=== PATIENT | male | born 1960 | race African-American/Black ===

== ENCOUNTER 2020-11-22 10:34 | Inpatient (IN) | payer OTHER ==
[2020-11-22 11:44] VITALS: BMI 21.8
[2020-11-22] MEDS ORDERED: ACETAMINOPHEN 325 MG TABLET (FP) PO PRN ×2 (15:10)
[2020-11-22] MEDS ORDERED: NICOTINE POLACRILEX 2 MG GUM BUC PRN (15:10)
[2020-11-22] MEDS ORDERED: MAG HYDROX/AL HYDROX/SIMETH 30 ML UNIT-DOSE CUP PO PRN (15:10)
[2020-11-22] MEDS ORDERED: MAGNESIUM HYDROX 2400MG/30ML ORAL SUSPENSION 30 ML CUP PO PRN (15:10)
[2020-11-22] MEDS ORDERED: IBUPROFEN 400 MG TABLET (FP) PO PRN (15:10)
[2020-11-22] MEDS ORDERED: BISMUTH SUBSALICYLATE 262 MG/15 ML BTL PO PRN (15:10)
[2020-11-22] MEDS ORDERED: MAGNESIUM CITRATE 300 ML BOTTLE PO PRN (15:10)
[2020-11-22] MEDS ORDERED: ONDANSETRON *ODT* 4 MG TABLET SL PRN (15:10)
[2020-11-22] MEDS ORDERED: MENTHOL/PHENOL 1 EACH UD MM PRN (15:10)
[2020-11-22] MEDS ORDERED: METHOCARBAMOL 500 MG TABLET PO PRN (15:10)
[2020-11-22] MEDS ORDERED: METHADONE HCL 10 MG TABLET (FOR DETOX USE ONLY) PO ONE (15:12)
[2020-11-22] MEDS: cloNIDine HCL 0.1 MG TABLET PO PRN (18:20)
[2020-11-22] MEDS: hydrOXYzine PAMOATE 25 MG CAPSULE (FP) PO SCH ×2 (18:20→22:47)
[2020-11-22] MEDS: NICOTINE 14 MG/24 HOURS TOPICAL PATCH TD SCH (18:22)
[2020-11-22] MEDS: MELATONIN 5 MG TABLETS PO SCH (22:47)
[2020-11-22] MEDS: THIAMINE HCL 100 MG TABLET (FP) PO SCH (22:47)
[2020-11-23] MEDS: hydrOXYzine PAMOATE 25 MG CAPSULE (FP) PO SCH ×2 (06:26→14:47)
[2020-11-23] MEDS ORDERED: METHADONE HCL 5 MG TABLET (FOR DETOX USE ONLY) ONE (09:11)
[2020-11-23] MEDS ORDERED: METHADONE HCL 10 MG TABLET (FOR DETOX USE ONLY) ONE (09:11)
[2020-11-23] MEDS ORDERED: METHADONE (DETOX) 20 MG, METHADONE (DETOX) 5 MG PO ONE (10:00)
[2020-11-23] MEDS ORDERED: hydrOXYzine PAMOATE 25 MG CAPSULE (FP) PO PRN (10:29)
[2020-11-23 11:58] LABS: HEMATOCRIT 43.1 % (35.4-49); HEMOGLOBIN 14.3 GM/dL (11.7-16.9); MCH 29.8 pg (25.7-33.7); MCHC 33.2 g/dl (32.0-35.9); MEAN CELL VOLUME 89.7 fl (80-96); MEAN PLT VOLUME 9.5 fl (7.5-11.1); PLATELET COUNT 186 K/MM3 (134-434); RDW 14.1 % (11.9-15.9); WHITE BLOOD COUNT 5.3 K/mm3 (4.0-10.0)
[2020-11-23] MEDS: PRENATAL VITAMINS W/ FOLIC ACID TABLET (FP) PO SCH (12:01)
[2020-11-23] MEDS: NICOTINE 14 MG/24 HOURS TOPICAL PATCH TD SCH (12:01)
[2020-11-23 12:19] LABS: POTASSIUM 4.4 mmol/L (3.5-5.1)
[2020-11-23 12:25] LABS: BLOOD UREA NITROGEN 15.1 mg/dL (7-18); CALCIUM 9.2 mg/dL (8.5-10.1)
[2020-11-23 12:26] LABS: ALBUMIN 3.3 g/dl (3.4-5.0)
[2020-11-23 12:29] LABS: CREATININE 0.9 mg/dL (0.55-1.3)
[2020-11-23 12:30] LABS: BILIRUBIN,TOTAL 0.4 mg/dL (0.2-1); TOT PROT 6.2 g/dl (6.4-8.2)
[2020-11-23] MEDS: BACITRACIN 0.9 GM PACKET TP SCH ×2 (14:22→22:39)
[2020-11-23] MEDS: FLUOCINONIDE 0.05% CREAM (15 GM TUBE) TP SCH ×3 (14:23→22:39)
[2020-11-23] MEDS: cloNIDine HCL 0.1 MG TABLET PO PRN (17:37)
[2020-11-23] MEDS: MELATONIN 5 MG TABLETS PO SCH (22:39)
[2020-11-23] MEDS: THIAMINE HCL 100 MG TABLET (FP) PO SCH (22:39)
[2020-11-23] MEDS: QUEtiapine FUMARATE 50 MG TABLET PO SCH (22:39)
[2020-11-24] MEDS ORDERED: METHADONE HCL 10 MG TABLET (FOR DETOX USE ONLY) PO ONE (10:00)
[2020-11-24] MEDS: FLUOCINONIDE 0.05% CREAM (15 GM TUBE) TP SCH ×4 (10:31→23:08)
[2020-11-24] MEDS: PRENATAL VITAMINS W/ FOLIC ACID TABLET (FP) PO SCH (10:32)
[2020-11-24] MEDS: BACITRACIN 0.9 GM PACKET TP SCH ×2 (10:32→23:08)
[2020-11-24] MEDS: NICOTINE 14 MG/24 HOURS TOPICAL PATCH TD SCH (10:33)
[2020-11-24] MEDS: cloNIDine HCL 0.1 MG TABLET PO PRN (18:17)
[2020-11-24 18:19] LABS: HIV INTERPRETATION NEGATIVE (NEGATIVE)
[2020-11-24] MEDS: MELATONIN 5 MG TABLETS PO SCH (23:08)
[2020-11-24] MEDS: QUEtiapine FUMARATE 50 MG TABLET PO SCH (23:08)
[2020-11-24] MEDS: THIAMINE HCL 100 MG TABLET (FP) PO SCH (23:09)
[2020-11-25] MEDS ORDERED: METHADONE HCL 5 MG TABLET (FOR DETOX USE ONLY) ONE (09:54)
[2020-11-25] MEDS ORDERED: METHADONE HCL 10 MG TABLET (FOR DETOX USE ONLY) ONE (09:54)
[2020-11-25] MEDS ORDERED: METHADONE (DETOX) 10 MG, METHADONE (DETOX) 5 MG PO ONE (10:00)
[2020-11-25] MEDS: PRENATAL VITAMINS W/ FOLIC ACID TABLET (FP) PO SCH (10:32)
[2020-11-25] MEDS: NICOTINE 14 MG/24 HOURS TOPICAL PATCH TD SCH (10:32)
[2020-11-25] MEDS: BACITRACIN 0.9 GM PACKET TP SCH ×2 (10:32→23:21)
[2020-11-25] MEDS: FLUOCINONIDE 0.05% CREAM (15 GM TUBE) TP SCH ×4 (10:33→23:21)
[2020-11-25] MEDS: MELATONIN 5 MG TABLETS PO SCH (23:21)
[2020-11-25] MEDS: THIAMINE HCL 100 MG TABLET (FP) PO SCH (23:21)
[2020-11-25] MEDS: QUEtiapine FUMARATE 50 MG TABLET PO SCH (23:22)
[2020-11-26 09:16] VITALS: BP 137/89; PULSE 82; TEMP 97.1
[2020-11-26] MEDS: PRENATAL VITAMINS W/ FOLIC ACID TABLET (FP) PO SCH (09:25)
[2020-11-26] MEDS: BACITRACIN 0.9 GM PACKET TP SCH (09:25)
[2020-11-26] MEDS: NICOTINE 14 MG/24 HOURS TOPICAL PATCH TD SCH (09:25)
[2020-11-26] MEDS: FLUOCINONIDE 0.05% CREAM (15 GM TUBE) TP SCH (09:25)
[2020-11-26] MEDS ORDERED: METHADONE HCL 10 MG TABLET (FOR DETOX USE ONLY) PO ONE (10:00)
[2020-11-27] MEDS ORDERED: METHADONE HCL 5 MG TABLET (FOR DETOX USE ONLY) PO ONE (06:00)
== END 2020-11-26 09:39 | disposition home or self-care (01) | DRG 773 ==
LOC: YASAS 10:34 → Y3N 15:01
PROVIDERS: ADMIT Allergy & Immunology; ATTEND Allergy & Immunology
PROC: HZ2ZZZZ Detoxification Services for Substance Abuse Treatment (ICD-10-PCS; principal; 2020-11-22)
DX: F11.23 Opioid dependence with withdrawal (principal); F10.10 Alcohol abuse, uncomplicated; F17.210 Nicotine dependence, cigarettes, uncomplicated; F19.24 Other psychoactive substance dependence with psychoactive substance-induced mood disorder; F31.9 Bipolar disorder, unspecified; G47.00 Insomnia, unspecified; I10 Essential (primary) hypertension; G89.29 Other chronic pain; M54.5 Low back pain; M51.26 Other intervertebral disc displacement, lumbar region; M12.9 Arthropathy, unspecified; L40.0 Psoriasis vulgaris; Z62.810 Personal history of physical and sexual abuse in childhood; R21 Rash and other nonspecific skin eruption; Z86.79 Personal history of other diseases of the circulatory system; Z98.890 Other specified postprocedural states
CPT/HCPCS: 36415; 80053; 85027; 86593; 86780; 87389; 93005; 93010; C9803; J0735; U0003

== ENCOUNTER 2021-11-24 10:06 | Inpatient (IN) | payer OTHER ==
[2021-11-24 10:39] VITALS: BMI 22.4
[2021-11-24] MEDS ORDERED: IBUPROFEN 400 MG TABLET (FP) PO PRN (11:27)
[2021-11-24] MEDS ORDERED: MAG HYDROX/AL HYDROX/SIMETH 30 ML UNIT-DOSE CUP PO PRN (11:27)
[2021-11-24] MEDS ORDERED: ACETAMINOPHEN 325 MG TABLET (FP) PO PRN ×2 (11:27)
[2021-11-24] MEDS ORDERED: MENTHOL/PHENOL 1 EACH UD MM PRN (11:27)
[2021-11-24] MEDS ORDERED: NICOTINE 10 MG CARTRIDGE (INHALER) IH PRN (11:27)
[2021-11-24] MEDS ORDERED: methaDONE HCL 10 MG TABLET (FOR DETOX USE ONLY) PO ONE (11:27)
[2021-11-24] MEDS ORDERED: MAGNESIUM HYDROX 2400MG/30ML ORAL SUSPENSION 30 ML CUP PO PRN (11:27)
[2021-11-24] MEDS ORDERED: LOPERAMIDE HCL 2 MG CAPSULE PO PRN (11:27)
[2021-11-24] MEDS ORDERED: ONDANSETRON *ODT* 4 MG TABLET SL PRN (11:27)
[2021-11-24] MEDS ORDERED: MAGNESIUM CITRATE 300 ML BOTTLE PO PRN (11:27)
[2021-11-24] MEDS ORDERED: BISMUTH SUBSALICYLATE 262 MG/15 ML BTL PO PRN (11:27)
[2021-11-24] MEDS: hydrOXYzine PAMOATE 25 MG CAPSULE (FP) PO SCH ×3 (15:46→22:42)
[2021-11-24] MEDS: LISINOPRIL 10 MG TABLET PO SCH (15:46)
[2021-11-24] MEDS: LIDOCAINE 5% TOPICAL PATCH TP SCH (15:52)
[2021-11-24] MEDS ORDERED: TRIMETHOBENZAMIDE HCL 200MG/2ML INJ IM ONE (20:19)
[2021-11-24] MEDS: LIDOCAINE PATCH REMOVAL MC SCH (22:39)
[2021-11-24] MEDS: MELATONIN 5 MG TABLETS PO SCH (22:42)
[2021-11-24] MEDS: THIAMINE HCL 100 MG TABLET (FP) PO SCH (22:42)
[2021-11-24] MEDS: cloNIDine HCL 0.1 MG TABLET PO PRN (22:42)
[2021-11-25] MEDS: hydrOXYzine PAMOATE 25 MG CAPSULE (FP) PO SCH ×5 (07:06→23:07)
[2021-11-25] MEDS ORDERED: methaDONE HCL 10 MG TABLET (FOR DETOX USE ONLY) ONE (09:55)
[2021-11-25] MEDS: LISINOPRIL 10 MG TABLET PO SCH (11:11)
[2021-11-25] MEDS: PRENATAL VITAMINS W/ FOLIC ACID TABLET (FP) PO SCH (11:11)
[2021-11-25] MEDS: LIDOCAINE 5% TOPICAL PATCH TP SCH (11:21)
[2021-11-25 14:28] LABS: CALCIUM 8.9 mg/dL (8.5-10.1)
[2021-11-25 14:29] LABS: ALBUMIN 3.9 g/dl (3.4-5.0); BLOOD UREA NITROGEN 18.8 mg/dL (7-18)
[2021-11-25 14:32] LABS: CREATININE 0.9 mg/dL (0.55-1.3)
[2021-11-25 14:33] LABS: BILIRUBIN,TOTAL 0.3 mg/dL (0.2-1); HEMATOCRIT 44.8 % (35.4-49); HEMOGLOBIN 14.7 GM/dL (11.7-16.9); MCH 29.7 pg (25.7-33.7); MCHC 32.7 g/dl (32.0-35.9); MEAN CELL VOLUME 90.7 fl (80-96); MEAN PLT VOLUME 9.5 fl (7.5-11.1); PLATELET COUNT 183 10^3/uL (134-434); RBC 4.94 M/mm3 (4.00-5.60); RDW 14.7 % (11.9-15.9); TOT PROT 7.4 g/dl (6.4-8.2); WHITE BLOOD COUNT 6.3 K/mm3 (4.0-10.0)
[2021-11-25] MEDS: cloNIDine HCL 0.1 MG TABLET PO PRN (18:07)
[2021-11-25] MEDS: LIDOCAINE PATCH REMOVAL MC SCH (23:06)
[2021-11-25] MEDS: MELATONIN 5 MG TABLETS PO SCH (23:07)
[2021-11-25] MEDS: THIAMINE HCL 100 MG TABLET (FP) PO SCH (23:07)
[2021-11-26] MEDS: hydrOXYzine PAMOATE 25 MG CAPSULE (FP) PO SCH ×5 (07:07→23:01)
[2021-11-26 08:07] LABS: SARS-CoV-2 NAA Not Detected (Not Detected)
[2021-11-26] MEDS ORDERED: methaDONE HCL 10 MG TABLET (FOR DETOX USE ONLY) PO ONE (10:00)
[2021-11-26] MEDS: PRENATAL VITAMINS W/ FOLIC ACID TABLET (FP) PO SCH (14:25)
[2021-11-26] MEDS: LISINOPRIL 10 MG TABLET PO SCH (14:25)
[2021-11-26] MEDS: LIDOCAINE 5% TOPICAL PATCH TP SCH (14:25)
[2021-11-26] MEDS: cloNIDine HCL 0.1 MG TABLET PO PRN (18:46)
[2021-11-26] MEDS: MELATONIN 5 MG TABLETS PO SCH (23:01)
[2021-11-26] MEDS: THIAMINE HCL 100 MG TABLET (FP) PO SCH (23:01)
[2021-11-26] MEDS: LIDOCAINE PATCH REMOVAL MC SCH (23:01)
[2021-11-27] MEDS: hydrOXYzine PAMOATE 25 MG CAPSULE (FP) PO SCH ×5 (06:38→21:31)
[2021-11-27] MEDS: PRENATAL VITAMINS W/ FOLIC ACID TABLET (FP) PO SCH (10:17)
[2021-11-27] MEDS: LISINOPRIL 10 MG TABLET PO SCH (10:17)
[2021-11-27] MEDS: METHOCARBAMOL 500 MG TABLET PO PRN ×2 (10:22→21:31)
[2021-11-27] MEDS: LIDOCAINE 5% TOPICAL PATCH TP SCH (10:25)
[2021-11-27] MEDS ORDERED: LISINOPRIL 5 MG TABLET PO ONE (17:22)
[2021-11-27] MEDS: LIDOCAINE PATCH REMOVAL MC SCH (21:18)
[2021-11-27] MEDS: MELATONIN 5 MG TABLETS PO SCH (21:31)
[2021-11-27] MEDS: THIAMINE HCL 100 MG TABLET (FP) PO SCH (21:31)
[2021-11-28] MEDS: hydrOXYzine PAMOATE 25 MG CAPSULE (FP) PO SCH ×5 (06:28→21:53)
[2021-11-28] MEDS: PRENATAL VITAMINS W/ FOLIC ACID TABLET (FP) PO SCH (10:23)
[2021-11-28] MEDS: LISINOPRIL 10 MG TABLET PO SCH (10:23)
[2021-11-28] MEDS: LIDOCAINE 5% TOPICAL PATCH TP SCH (10:23)
[2021-11-28] MEDS: methaDONE HCL 10 MG TABLET (FOR DETOX USE ONLY) PO ONE ×2 (10:24→10:32)
[2021-11-28] MEDS: LIDOCAINE PATCH REMOVAL MC SCH (21:49)
[2021-11-28] MEDS: THIAMINE HCL 100 MG TABLET (FP) PO SCH (21:53)
[2021-11-28] MEDS: MELATONIN 5 MG TABLETS PO SCH (21:53)
[2021-11-28] MEDS: METHOCARBAMOL 500 MG TABLET PO PRN (21:54)
[2021-11-29] MEDS: hydrOXYzine PAMOATE 25 MG CAPSULE (FP) PO SCH (06:28)
[2021-11-29 09:36] VITALS: BP 133/86; PULSE 89; TEMP 97.9
== END 2021-11-29 10:02 | disposition home or self-care (01) | DRG 773 ==
LOC: YASAS 10:06 → Y3N 13:22
PROVIDERS: ADMIT Allergy & Immunology; ATTEND Allergy & Immunology
PROC: HZ2ZZZZ Detoxification Services for Substance Abuse Treatment (ICD-10-PCS; principal; 2021-11-24)
DX: F11.23 Opioid dependence with withdrawal (principal); F14.10 Cocaine abuse, uncomplicated; F17.210 Nicotine dependence, cigarettes, uncomplicated; F31.81 Bipolar II disorder; F19.24 Other psychoactive substance dependence with psychoactive substance-induced mood disorder; I10 Essential (primary) hypertension; M17.0 Bilateral primary osteoarthritis of knee; Z62.810 Personal history of physical and sexual abuse in childhood; Z86.19 Personal history of other infectious and parasitic diseases
CPT/HCPCS: 36415; 80053; 85027; 86593; 86780; 87811; C9803-CS; J0735; Q0162; U0003; U0005